=== PATIENT | male | born 1995 | race Caucasian/White ===

== ENCOUNTER 2019-02-15 22:07 | Emergency (ER) | payer OTHER, SELFPAY ==
[~2019-02-15] VITALS: Ht 172.7 cm; Wt 97.7 kg
[2019-02-15] MEDS ORDERED: diphenhydrAMINE INJ 50MG/ML VIAL (J1200) IV STA (22:28)
[2019-02-15] MEDS ORDERED: methylPREDNISolone INJ 125 MG/2 ML VIAL (J2930) IV ONE (22:30)
[2019-02-15] MEDS ORDERED: FAMOTIDINE IV BAG 20 MG in APPROPRIATE DILUENT 1 EA IV ONE (22:30)
[2019-02-15] MEDS ORDERED: ONDANSETRON 4MG/2ML VIAL (J2405) IV ONE (22:45)
[2019-02-15] MEDS ORDERED: diphenhydrAMINE INJ 50MG/ML VIAL (J1200) IV ONE (22:45)
[2019-02-15] MEDS ORDERED: ONDA4TAB6 PO (23:52)
[2019-02-15] MEDS ORDERED: MEDR4PAK PO (23:52)
[2019-02-15] MEDS ORDERED: PEPC1TAB5 PO (23:52)
[2019-02-16 00:08] VITALS: BP 97/66
== END 2019-02-16 00:10 | disposition home or self-care (01) ==
LOC: M ED 22:07
DX: T78.3XXA Angioneurotic edema, initial encounter (principal); Y92.9 Unspecified place or not applicable; Y93.9 Activity, unspecified
CPT/HCPCS: 96365; 96375; 99284; J1200; J2405; J2930

== ENCOUNTER 2019-02-28 20:18 | Emergency (ER) | payer SELFPAY ==
[~2019-02-28] VITALS: Ht 175.3 cm; Wt 81.8 kg
[~2019-02-28 20:18] MED LIST: MEDR4PAK PO; ONDA4TAB6 PO; PEPC1TAB5 PO
[2019-02-28] MEDS ORDERED: diphenhydrAMINE INJ 50MG/ML VIAL (J1200) IV STA (20:35)
[2019-02-28] MEDS ORDERED: dexameTHASONE 20 MG/5 ML VIAL (J1100) IV ONE (20:45)
[2019-02-28] MEDS ORDERED: PRED20TA PO (21:50)
[2019-02-28 22:27] VITALS: BP 120/56
== END 2019-02-28 22:43 | disposition home or self-care (01) ==
LOC: M ED 20:18
DX: T78.40XA Allergy, unspecified, initial encounter (principal); Y92.9 Unspecified place or not applicable; Y93.9 Activity, unspecified; Z72.0 Tobacco use
CPT/HCPCS: 96374; 96375; 99284; J1100; J1200

== ENCOUNTER 2019-04-07 22:32 | Emergency (ER) | payer SELFPAY ==
[~2019-04-07] VITALS: Ht 175.3 cm; Wt 84.5 kg
[~2019-04-07 22:32] MED LIST changes: +PRED20TA PO
[2019-04-07] MEDS ORDERED: diphenhydrAMINE INJ 50MG/ML VIAL (J1200) IV STA (23:04)
[2019-04-07] MEDS ORDERED: FAMOTIDINE INJ 20MG/2ML VIAL (S0028) IVP ONE (23:15)
[2019-04-07] MEDS ORDERED: dexameTHASONE 20 MG/5 ML VIAL (J1100) IV ONE (23:15)
[2019-04-08 00:30] VITALS: BP 102/52
== END 2019-04-08 00:47 | disposition home or self-care (01) ==
LOC: M ED 22:32
DX: R21 Rash and other nonspecific skin eruption (principal); R22.1 Localized swelling, mass and lump, neck; T78.40XA Allergy, unspecified, initial encounter; X58.XXXA Exposure to other specified factors, initial encounter; Y92.89 Other specified places as the place of occurrence of the external cause; Z91.018 Allergy to other foods; F17.210 Nicotine dependence, cigarettes, uncomplicated
CPT/HCPCS: 36415; 96374; 96375; 99284; J1100; J1200

== ENCOUNTER 2019-11-23 02:39 | Emergency (ER) | payer SELFPAY ==
[~2019-11-23] VITALS: Ht 175.3 cm; Wt 86.4 kg
[2019-11-23 02:40] VITALS: BP 155/78
== END 2019-11-23 03:33 | disposition left against medical advice (07) ==
LOC: M ED 02:39
DX: Z53.21 Procedure and treatment not carried out due to patient leaving prior to being seen by health care provider (principal)

== ENCOUNTER 2020-06-06 21:21 | Emergency (ER) | payer MEDICAID, SELFPAY ==
[2020-06-06] MEDS ORDERED: diphenhydrAMINE 50MG/ML VIAL (J1200) As Ordered ONE (21:51)
[2020-06-06] MEDS ORDERED: methylPREDNISolone 125MG 2ML VIAL As Ordered ONE (21:52)
[2020-06-06] MEDS ORDERED: FAMOTIDINE INJ 20MG/2ML VIAL (S0028 PER 1) ONE (22:02)
[2020-07-21 10:25] LABS: BASO % 0.1 % (0.0-1.0); EOS # 0.1 10^3/uL (0.0-0.5); EOS % 1.2 % (0.0-3.0); HEMATOCRIT 43.7 % (42.0-52.0); HEMOGLOBIN 14.8 g/dl (13.5-17.5); LYMPH # 4.7 10^3/uL (1.5-5.0); LYMPH % 55.4 % (24.0-44.0); MEAN CORPUSCULAR HEMOGLOBIN 27.6 pg (27.0-33.0); MEAN CORPUSCULAR HGB CONC 33.9 g/dl (32.0-36.5); MEAN CORPUSCULAR VOLUME 81.4 fl (80.0-96.0); MONO # 0.6 10^3/uL (0.0-0.8); MONO % 7.6 % (0.0-5.0); NEUTROPHILS % 35.3 % (36.0-66.0); PLATELET COUNT, AUTOMATED 232 10^3/uL (150-450); RED BLOOD COUNT 5.37 10^6/uL (4.30-6.10); WHITE BLOOD COUNT 8.4 10^3/uL (4.0-10.0)
[2020-07-21 10:27] LABS: ERYTHROCYTE SEDIMENTATION RATE 5 mm/hr (0-15)
[2020-07-21 10:41] LABS: INR 1.12; PARTIAL THROMBOPLASTIN TIME 24.9 SECONDS (24.2-38.5); PROTHROMBIN TIME 14.6 SECONDS (12.5-14.3)
[2020-08-20 21:39] LABS: ALBUMIN 3.5 GM/DL (3.2-5.2); ALT/SGPT 19 U/L (12-78); BILIRUBIN,TOTAL 0.5 MG/DL (0.2-1.0); BLOOD UREA NITROGEN 15 MG/DL (7-18); CALCIUM LEVEL 8.1 MG/DL (8.5-10.1); CARBON DIOXIDE LEVEL 28 MEQ/L (21-32); CHLORIDE LEVEL 110 MEQ/L (98-107); CREATININE FOR GFR 1.21 MG/DL (0.70-1.30); GLOMERULAR FILTRATION RATE > 60.0 (>60); GLUCOSE, FASTING 107 MG/DL (70-100); POTASSIUM SERUM 3.4 MEQ/L (3.5-5.1); SODIUM LEVEL 143 MEQ/L (136-145); TOTAL PROTEIN 6.6 GM/DL (6.4-8.2)
== END 2020-06-06 23:32 | disposition home or self-care (01) ==
LOC: M ED 21:21
DX: T78.40XA Allergy, unspecified, initial encounter (principal)
CPT/HCPCS: 80053; 85025; 85610; 85652; 85730; 86140; 96374; 96375; 99284; J1200; J2930

== ENCOUNTER 2020-12-14 00:32 | Emergency (ER) | payer MEDICAID, OTHER ==
[~2020-12-14] VITALS: Ht 172.7 cm; Wt 103.7 kg
[2020-12-14 00:32] VITALS: BP 135/73
--- OUTSIDE RECORDS SUMMARY | 2020-12-14 00:37 | CCD ---
Author Author [facility] Organization [facility] Address Unknown Phone Unavailable Support Name Relationship Address Phone CHRISTREE Next Of Kin [address] [place] [address] MOES Next Of Kin [address] [place] [address] [place] Next Of Kin [address] [place] [address] GILMAR FROST Next Of Kin [address] [place] [id number] Next Of Kin Unknown Unavailable UE Next Of Kin Unknown Unavailable RUTH GIBSON Next Of Kin [address] [place] [address] KENDRICK GIBSON Next Of Kin [address] [place] [address] Re-disclosure Warning The records that you are about to access may contain information from federally-assisted alcohol or drug abuse programs. If such information is present, then the following federally mandated warning applies: This information has been disclosed to you from records protected by federal confidentiality rules (42 CFR part 2). The federal rules prohibit you from making any further disclosure of this information unless further disclosure is expressly permitted by the written consent of the person to whom it pertains or as otherwise permitted by 42 CFR part 2. A general authorization for the release of medical or other information is NOT sufficient for this purpose. The Federal rules restrict any use of the information to criminally investigate or prosecute any alcohol or drug abuse patient.The records that you are about to access may contain highly sensitive health information, the redisclosure of which is protected by Article 27-F of the [facility] Public Health law. If you continue you may have access to information: Regarding HIV / AIDS; Provided by facilities licensed or operated by the [facility] Office of Mental Health; or Provided by the [facility] Office for People With Developmental Disabilities. If such information is present, then the following [facility] mandated warning applies: This information has been disclosed to you from confidential records which are protected by state law. State law prohibits you from making any further disclosure of this information without the specific written consent of the person to whom it pertains, or as otherwise permitted by law. Any unauthorized further disclosure in violation of state law may result in a fine or prison sentence or both. A general authorization for the release of medical or other information is NOT sufficient authorization for further disc losure. Family History Family Member Name Family Member Gender Family Member Status Date o f Status Description Data Source(s) Unknown Unknown Problem [facility] ([facility]) Insurance Providers Payer name Policy type / Coverage type Policy ID Covered democrat ID Covered democrat's relationship to mojica Policy Mojica Plan Information EMEDNY [id number] SP [id number] EMEDNY [id number] SP [id number] SELF PAY ONLY [id number] SP [id number] [facility] [id number] SP [id number] [facility] Health Maintenance Organization (HMO) Self [facility](MCAID) O [id number] S [id number] [facility] COMM PLAN [id number] Managed Care - Community [facility] Healthcare P [id number] S [id number] Managed Care - [facility] O [id number] S [id number] zzMedicaid FFS O [id number] Medicaid S [id number] S [id number] SELF PAY UNAVAILABLE UNAVAILA BLE MEDICAID [id number] SP [id number]
[2020-12-14] MEDS ORDERED: KETOROLAC 60MG 2ML VIAL IM ONE (01:15)
[2020-12-14] MEDS ORDERED: methocarbamoL 750 MG TAB PO ONE (01:15)
[2020-12-14 01:47] LABS: BASO % 0.2 % (0.0-1.0); EOS % 0.1 % (0.0-3.0); HEMOGLOBIN 15.5 g/dl (13.5-17.5); LYMPH # 1.1 10^3/uL (1.5-5.0); LYMPH % 8.8 % (24.0-44.0); MEAN CORPUSCULAR HEMOGLOBIN 27.4 pg (27.0-33.0); MEAN CORPUSCULAR HGB CONC 33.7 g/dl (32.0-36.5); MEAN CORPUSCULAR VOLUME 81.3 fl (80.0-96.0); MONO # 0.8 10^3/uL (0.0-0.8); MONO % 6.5 % (2.0-8.0); NEUTROPHILS # 10.9 10^3/uL (1.5-8.5); NEUTROPHILS % 83.8 % (36.0-66.0); PLATELET COUNT, AUTOMATED 219 10^3/uL (150-450); RED BLOOD COUNT 5.66 10^6/uL (4.30-6.10)
[2020-12-14] MEDS ORDERED: ROBA750T4 PO (02:00)
[2020-12-14] MEDS ORDERED: NAPR-837 PO (02:00)
--- OUTSIDE RECORDS SUMMARY | 2020-12-14 02:09 | CCD ---
Author Author [facility] Organization [facility] Address Unknown Phone Unavailable Support Name Relationship Address Phone CHRISTREE Next Of Kin [address] [place] [address] MOES Next Of Kin [address] [place] [address] [employer] Next Of Kin [address] [place] [address] GILMAR FROST Next Of Kin [address] [place] [id number] Next Of Kin Unknown Unavailable UE Next Of Kin Unknown Unavailable RUTH GIBSON Next Of Kin [address] [place] [address] KENDRICK GIBSON Next Of Kin [address] [place] [address] Re-disclosure Warning The records that you are [...] is protected by Article 27-F of the [facility] Public Health law. If you continue you may have access to information: Regarding HIV / AIDS; Provided by facilities licensed or operated by the [facility] Office of Mental Health; or Provided by the [facility] Office for People With Developmental Disabilities. If such information is present, then the following [facility] mandated warning applies: This information has been [...] law may result in a fine or custodial sentence or both. A general authorization for the release of medical or other information is NOT sufficient authorization for further disc losure. Family History Family Member Name Family Member Gender Family Member Status Date o f Status Description Data Source(s) Unknown Unknown Problem [facility] ([facility]) Insurance Providers Payer name Policy type / Coverage type Policy ID Covered green party ID Covered green party's relationship to mojica Policy Mojica Plan Information EMEDNY [id number] SP [id number] EMEDNY [id number] SP [id number] SELF PAY ONLY [id number] SP [id number] [facility] [id number] SP [id number] [facility] Health Maintenance Organization (HMO) Self [facility](MCAID) O [id number] S [id number] [facility] COMM PLAN [id number] 18 [id number] Managed Care - Community [facility][Note 3] Healthcare P [id number] S [id number] Managed Care - [facility] O [id number] S [id number] zzMedicaid FFS O [id number] S [id number] Medicaid S [id number] S [id number] SELF PAY UNAVAILABLE UNAVAILA BLE MEDICAID [id number] SP [id number]
== END 2020-12-14 02:47 | disposition home or self-care (01) ==
LOC: M ED 00:32
DX: M54.5 Low back pain (principal); Z91.018 Allergy to other foods; F17.210 Nicotine dependence, cigarettes, uncomplicated
CPT/HCPCS: 36415; 80047; 81001; 85025; 96372; 99283; J1885

== ENCOUNTER → 2021-11-15 | Outpatient (REF) | payer OTHER ==
[~2021-11-15] MED LIST changes: +NAPR-837 PO; +ROBA750T4 PO
== END ==
LOC: M LAB REF 12:45
PROVIDERS: ATTEND Physician Assistant
DX: R05.9 Cough, unspecified (principal)

== ENCOUNTER 2022-05-17 04:29 | Emergency (ER) | payer OTHER ==
[~2022-05-17] VITALS: Ht 175.3 cm; Wt 90.6 kg
[2022-05-17 04:32] VITALS: BP 148/73
== END 2022-05-17 05:17 | disposition left against medical advice (07) ==
LOC: M ED 04:29
DX: Z53.29 Procedure and treatment not carried out because of patient's decision for other reasons (principal)

== ENCOUNTER 2022-06-04 04:28 | Emergency (ER) | payer OTHER ==
[~2022-06-04] VITALS: Ht 175.3 cm; Wt 89.4 kg
[2022-06-04 05:18] VITALS: BP 107/61
== END 2022-06-04 05:20 | disposition left against medical advice (07) ==
LOC: M ED 04:28
DX: Z53.21 Procedure and treatment not carried out due to patient leaving prior to being seen by health care provider (principal)

== ENCOUNTER → 2022-08-02 | Outpatient (REF) | LOC: M LAB 09:48 | PROVIDERS: ATTEND Nurse Practitioner Adult Health | DX: Z02.1 Encounter for pre-employment examination (principal) ==